=== PATIENT | female | born 1950 | race Caucasian/White ===

== ENCOUNTER → 2017-10-02 | Outpatient (CLI) | payer MEDICARE, OTHER | END | disposition home or self-care (01) | LOC: LAB SHORT 10:48 → PLD 10:48 | DX: D22.5 Melanocytic nevi of trunk (principal); D22.71 Melanocytic nevi of right lower limb, including hip; D22.72 Melanocytic nevi of left lower limb, including hip | CPT/HCPCS: 88305 ==

== ENCOUNTER → 2020-03-22 | Outpatient (CLI) | payer MEDICARE, OTHER | END | disposition home or self-care (01) | LOC: LAB SHORT 08:40 → PLD 08:40 | DX: D22.72 Melanocytic nevi of left lower limb, including hip (principal) | CPT/HCPCS: 88305 ==

== ENCOUNTER 2022-12-28 11:08 | Day surgery (SDC) | payer MEDICARE, OTHER ==
[2022-12-28] VITALS (9 sets, daily range): BP systolic 129–154; BP diastolic 56–76
[~2022-12-28] VITALS: Ht 152.4 cm; Wt 69.9 kg
[~2022-12-28 11:08] MED LIST: CALCIUM CARBONATE; CLOP75 PO; EZET10 PO; IBU800 MG PO; LOSA50 PO; OXYB5 PO; PRAV20 PO; TRAZ50 PO; VALIUM513 PO
== END 2022-12-28 16:40 | disposition home or self-care (01) ==
LOC: MHTC 11:08
PROC: B206YZZ Plain Radiography of Right and Left Heart using Other Contrast (ICD-10-PCS; principal; 2022-12-28)
DX: I35.0 Nonrheumatic aortic (valve) stenosis (principal); I10 Essential (primary) hypertension; E78.2 Mixed hyperlipidemia; E66.9 Obesity, unspecified; G47.33 Obstructive sleep apnea (adult) (pediatric); Z86.73 Personal history of transient ischemic attack (TIA), and cerebral infarction without residual deficits; Z79.02 Long term (current) use of antithrombotics/antiplatelets; Z79.899 Other long term (current) drug therapy; Z68.30 Body mass index [BMI] 30.0-30.9, adult
CPT/HCPCS: 76937; 93454; 99152; C1769; C1887; C1894; J1644; J2250; J3010; J7030; J7040; J7050; Q9967